=== PATIENT | male | born 1990 | race Caucasian/White ===

== ENCOUNTER 2021-08-16 21:27 | Emergency (ER) | payer MEDICAID ==
[~2021-08-16] VITALS: Ht 170.2 cm; Wt 72.7 kg
[2021-08-16 21:35] VITALS: BP 134/77
== END 2021-08-16 23:00 | disposition left against medical advice (07) ==
LOC: EMS 21:30
DX: H92.01 Otalgia, right ear (principal); Z53.21 Procedure and treatment not carried out due to patient leaving prior to being seen by health care provider